=== PATIENT | female | born 1965 | race Two or more races ===

== ENCOUNTER 2017-10-19 08:07 | Emergency (ER) | payer SELFPAY ==
[2017-10-19 08:29] LABS: URINE HCG POC HCG NEGATIVE (Negative)
[2017-10-19 08:35] LABS: BILIRUBIN,URINE NEGATIVE (NEG); CLARITY,URINE CLEAR; COLOR,URINE YELLOW; GLUCOSE,URINE NEGATIVE (NEG); NITRITE,URINE POSITIVE (NEG); PH,URINE 6.5; PROTEIN,URINE NEGATIVE (NEG-TRACE); UROBILINOGEN,URINE 0.2 mg/dL (0.2 mg/dL)
[2017-10-19 08:41] LABS: BACTERIA,URINE MANY /HPF (0-FEW)
[2017-10-19] MEDS: IV NORMAL SALINE 1000ML BAG 1,000 ML IV (08:55)
[2017-10-19] MEDS: ONDANSETRON PF 4 MG/2 ML VIAL. IV (08:55)
[2017-10-19 08:56] LABS: ADD MAN DIFF? NO
[2017-10-19 09:09] LABS: ANION GAP 7 (6-14); BASO % 0 % (0-3); BLOOD UREA NITROGEN 6 mg/dL (7-20); BUN/CREATININE RATIO 10 (6-20); CALCIUM 8.6 mg/dL (8.5-10.1); CARBON DIOXIDE 28 mmol/L (21-32); CHLORIDE 104 mmol/L (98-107); CREATININE 0.6 mg/dL (0.6-1.0); EOS % 0 % (0-3); GFR 105.8; GLUCOSE 98 mg/dL (70-99); HEMATOCRIT 38.5 % (36.0-47.0); HEMOGLOBIN 13.2 g/dL (12.0-15.5); LYMPH # 1.6 x10^3/uL (1.0-4.8); LYMPH % 16 % (24-48); MEAN CORPUSCULAR HEMOGLOBIN 34 pg (25-35); MEAN CORPUSCULAR HGB CONC 34 g/dL (31-37); MEAN CORPUSCULAR VOLUME 100 fL (79-100); MONO # 1.2 x10^3/uL (0.0-1.1); MONO % 13 % (0-9); NEUT % 71 % (31-73); PLATELET COUNT 168 x10^3/uL (140-400); POTASSIUM 4.1 mmol/L (3.5-5.1); RED BLOOD COUNT 3.84 x10^6/uL (3.50-5.40); RED CELL DISTRIBUTION WIDTH 13.5 % (11.5-14.5); SODIUM 139 mmol/L (136-145)
[2017-10-19] MEDS: CIPROFLOXACIN 400MG PREMIX 200 ML IV (09:10)
[2017-10-19 09:14] LABS: ALBUMIN 3.4 g/dL (3.4-5.0); ALBUMIN/GLOBULIN RATIO 0.7 (1.0-1.7); ALK PHOS 77 U/L (46-116); ALT (SGPT) 47 U/L (14-59); AST (SGOT) 31 U/L (15-37); TOTAL BILIRUBIN 0.5 mg/dL (0.2-1.0)
[2017-10-19] MEDS: ACETAMINOPHEN 500 MG TABLET PO (10:03)
[2017-10-19] MEDS: IBUPROFEN 800 MG TABLET. PO (10:03)
== END 2017-10-19 11:15 | disposition home or self-care (01) ==
LOC: ER 11:15
DX: N39.0 Urinary tract infection, site not specified (principal); H10.11 Acute atopic conjunctivitis, right eye; B99.8 Other infectious disease; R11.2 Nausea with vomiting, unspecified; Z88.0 Allergy status to penicillin
CPT/HCPCS: 36415; 80053; 81001; 81025; 85025; 87086; 87186; 96365; 96375; 99284; J0744; J2405; J7030